=== PATIENT | female | born 1955 | race Caucasian/White ===

== ENCOUNTER 2020-12-31 08:52 | Outpatient (CLI) | payer MEDICARE, SELFPAY ==
--- NOTE | ~2020-12-31 | MM_ITS ---
EXAMINATION: MM screening apoorva BI w kojo HISTORY: Screening TECHNIQUE: Craniocaudal and mediolateral oblique 3-D tomosynthesis images were obtained and synthetic 2-D images were generated. CAD analysis was submitted and interpreted. COMPARISON: 11/21/2016 BREAST PARENCHYMAL COMPOSITION: The breasts are almost entirely fatty. FINDINGS: There is no evidence of suspicious mass, calcification, or architectural distortion to sugg est malignancy in either breast. There has been no suspicious interval change. IMPRESSION: 1. No mammographic evidence of malignancy. 2. Recommend routine screening mammography in one year. BI-RADS Category 1: Negative Reviewed, dictated and finalized at location A.
--- NOTE | ~2020-12-31 | DEXA_ITS ---
Bone Density Report Name: Vanessa Jimenez Age: 65 Sex: Female Ethnicity: White Date of : 1955 Indication: postmenopausal; height loss; hysterectomy; Referring Provider: ANTOINE WINSTON Study: Bone densitometry was performed. Exam Date: December 31, 2020 Accession number: [id number] Bone Density: Region BMD T-score Z-score Classification AP Spine (L1, L2, L3) 1.056 0.3 2.1 Normal Femoral Neck (Left) 0.809 -0.4 1.2 Normal Total Hip (Left) 1.028 0.7 2.0 Normal Total Hip Bilateral Avg 0.988 0.3 1.7 Normal Femoral Neck (Right) 0.826 -0.2 1.4 Normal Total Hip (Right) 0.947 0.0 1.3 Normal World Health Organization criteria for BMD impression classify patients as: Normal (T-score at or above -1.0), Osteopenia (T-score between -1.0 and -2.5), or Osteoporosis (T-score at or below -2.5). 10-year Fracture Risk: FRAX not reported because: All T-scores for Spine Total, Hip Total, Femoral Neck at or above -1.0 Clinical Information Provided by Patient: Has used the following medications: Vitamin D Has the following medical conditions: Hysterectomy Patient maximum height was 69.5 Menopause Age: 54 No regular weight bearing exercise Drinks caffeinated beverages Onset of menses at age 12 Number of children 2 Impression: The patient has normal bone mass. Discussion: BONE DENSITY IS ABOVE THE MINIMUM DESIRABLE LEVEL AT ALL SKELETAL SITES TESTED. This patient?s bone mineral density is above the minimum desirable level (T-score -1.0 or better) at all sites measured. The patient should follow a healthful lifestyle (good nutrition with adequate calcium and vitamin D, and appropriate weight-bearing exercise). Follow-Up: Consider repeating this study in 5 years or sooner if there is some new clinical indication. Reported by: JAM on 12/31/2020 9:25:00 AM. Reviewed, dictated and finalized at location [facility] ESPINOSA
== END 2020-12-31 08:53 | disposition home or self-care (01) ==
PROVIDERS: PCP Family Medicine; Visit Provider Obstetrics & Gynecology
DX: Z12.31 Encounter for screening mammogram for malignant neoplasm of breast (principal); Z78.0 Asymptomatic menopausal state
CPT/HCPCS: 77063; 77067; 77080

== ENCOUNTER → 2021-02-12 08:18 | Outpatient (CLI) | payer MEDICARE, SELFPAY ==
--- NOTE | ~2021-02-12 | MR_ITS ---
EXAMINATION: MR ankle RT wo con DATE: 02/12/2021 09:12 INDICATION: Right Achilles insertional tenderness. TECHNIQUE: Magnetic resonance imaging (MRI) of the right ankle was performed without intravenous cont rast. Sequences included sagittal, coronal, and axial proton-density weighted fast spin echo without and with fat saturation. COMPARISON: None. FINDINGS: Medial ankle ligaments: Deep and superficial deltoid ligaments as well as the spring ligament are normal. Lateral ankle ligaments: The anterior and posterior inferior tibiofibular ligaments are normal. The anterior talofibular, calc aneofibular and posterior talofibular ligaments are normal. Tendons: Moderate distal Achilles tendinosis with mild peritendinitis but without discrete tear. The peroneus longus and brevis tendons are normal. The tibialis anterior and extensor hallucis longus and extensor digitorum longus tendons are normal. The tibialis posterior, flexor digitorum longus and flexor jackman ucis longus tendons are normal. Plantar fascia: Small plantar calcaneal spur at the origin of the normal plantar aponeurosis. Bones/other: Bone alignment is normal. No reactive edema, fracture or pathologic marrow replacing process. No eros ions. Joint spaces are relatively preserved. Fluid: Physiologic amount fluid in the joint spaces. There is a 16 x 8 x 3 mm multilobulated ganglion cyst a rising at the dorsal aspect of the Lisfranc joint at the junction of the articulations of the base of the second metatarsal and medial and mid cuneiforms. IMPRESSION: 1. Moderate insertional Achilles tendinosis with mild peritendinitis but without discrete tear. Reviewed, dictated and finalized at location A. IMPRESSION: 1. Moderate insertional Achilles tendinosis with mild peritendinitis but withou t discrete tear.
== END ==
PROVIDERS: PCP Family Medicine; Visit Provider Podiatrist Foot & Ankle Surgery
DX: M76.61 Achilles tendinitis, right leg (principal)
CPT/HCPCS: 73721

== ENCOUNTER 2021-05-09 11:20 | Outpatient (CLI) | payer MEDICARE, SELFPAY ==
--- NOTE | 2021-05-09 11:30 | ECG_ITS ---
Measurements Intervals [place] Rate: 68 P: 39 MN: 194 QRS: -24 QRSD: 77 T: 8 QT: 382 QTc: 409 Interpretive Statements SINUS RHYTHM EARLY PRECORDIAL R/S TRANSITION VOLTAGE CRITERIA FOR LVH BASELINE ARTIFACT- I, III, AVR, AVL BORDERLINE ECG Electronically Signed On 05-09-2021 14:39:08 CDT by Gavino Gamble D.O.
== END 2021-05-09 11:21 | disposition home or self-care (01) ==
LOC: ANHSURGERY 11:30
PROVIDERS: PCP Family Medicine; Visit Provider Podiatrist Foot & Ankle Surgery
DX: I10 Essential (primary) hypertension (principal); Z01.818 Encounter for other preprocedural examination; R94.31 Abnormal electrocardiogram [ECG] [EKG]
CPT/HCPCS: 93005

== ENCOUNTER 2021-05-13 00:32 | Day surgery (SDC) | payer MEDICARE, SELFPAY ==
[2021-05-04 15:45] VITALS: BMI 29.8
[2021-05-13] VITALS (10 sets, daily range): BP systolic 101–158; BP diastolic 63–94; PULSE 70–87; RESP 10–18; TEMP 36.2–36.6; O2SAT 92–99; BMI 30.4
--- NOTE | ~2021-05-13 | XR_ITS ---
EXAMINATION: XR surgery orthopedic DATE: 05/13/2021 10:12 INDICATION: Achilles calcific tendinosis with insertional tenderness TECHNIQUE: 2 fluoroscopic images of the right calcaneus were obtained during procedure performed by Dorota Christianson. Radiologist was not present for the imaging or procedure. The amount of fluoroscopy time used during this procedure was 0.1 minutes. COMPARISON: None. FINDINGS: Surgical wound with gas in the soft tissues posterior to the posterior tuberosity of the calcaneus. S ubsequent image demonstrates a screw likely for placement of a suture anchor in the region of the norma caneal insertion of the Achilles tendon. No fracture. Visualized joint spaces are normal. IMPRESSION: 1. Fluoroscopy utilized during likely Achilles tendon repair. See procedure note for further detail. Reviewed, dictated and finalized at location A. IMPRESSION: 1. Fluoroscopy utilized during likely Achilles tendon repair. See procedure not e for further detail.
--- NOTE | 2021-05-13 07:18 | WPDHPUPDATE1 ---
History and Physical Update Update Date/Time: 05/13/21 07:18 History and Physical has been reviewed, including an updated exam of the patient. There are NO changes in the patient's condition. Risks, benefits, and alternatives have been discussed and questions answered. Patient agrees to proceed with procedure.
[2021-05-13] MEDS: LACTATED RINGERS 1,000 ML 30 ML IV CONT ×2 (07:50→11:24)
--- NOTE | 2021-05-13 08:13 | P.PNAN_ITS ---
Anes - Initial Pre Proc Eval Procedure: Operation Date: 05/13/21 09:00 Proposed Procedures p Retrocalcaneal Exostectomy With Detachment With Reattachment Of Achilles Tendon Right Foot - Delano Christianson JR, MD Date/Time: 05/13/21 08:13 Surgeon: Delano Christianson JR, MD Pre Op Diagnosis: Achilles Calcific Tendinosis Right Foot Patient Data Age: 65 Gender: F Height: 1.74 m Weight: 92 kg Last Vital Signs Temp 36.2 C L 05/13/21 07:41 Pulse 75 05/13/21 07:41 Resp 16 05/13/21 07:41 BP 158/94 H 05/13/21 07:41 Pulse Ox 97 05/13/21 07:41 Allergies Allergy/AdvReac Type Severity Reaction Status Date / Time No Known Allergies Allergy Verified 05/13/21 07:30 Home Medications Medication Instructions Recorded Confirmed Type cholecalciferol (vitamin D3) 50 1,000 unit PO DAILY tablet 06/24/19 05/13/21 History mcg (2,000 unit) tablet pravastatin 10 mg tablet 10 mg PO QHS #90 tablet 12/20/20 05/13/21 Rx lisinopril 20 mg tablet See Rx Instructions .ROUTE 03/21/21 05/13/21 Rx .COMPLEX #90 tablet metoprolol succinate 100 mg See Rx Instructions .ROUTE 04/14/21 05/13/21 Rx tablet,extended release 24 hr .COMPLEX #30 tablet Patient hx anesthesia problems: none Family hx anesthesia problems: none Results Review: All pre-operative results and documents have been reviewed as part of the pre-operative evaluation. [facility] Past Medical History Medical History Cystocele, midline Essential (primary) hypertension Hepatitis C antibody test negative (~08/30/17) History of vaginal delivery x 2 Mixed hyperlipidemia Overweight Prediabetes Surgical History Surgical History History of bladder surgery History of hysterectomy (~11/27/16) Hx of cholecystectomy (~1999) Family History Family History Mother Hypertension Other Diabetes mellitus Social History Social History Smoking status: Never smoker Alcohol intake: current Drinks per week: 7 Living arrangements: with family Spiritual care concerns: No Anes - Eval Final PreProcedure Day of Procedure 05/13/21 08:13 Patient weight: obese Heart: regular rate and rhythm Lungs: clear to auscultation Airway: Mallampati scale class II and other (caps and implants) Neurological: alert and oriented Last oral intake: >/= 8 hours ASA classification: II Emergent: no Anesthetic plan: proceed Anesthesia type and monitoring: general ETT (glidescope planned) and standard monitoring Results Review: All pre-operative results and documents have been reviewed as part of the pre-operative evaluation. Informed Consent: The patient's anesthetic plan and its attendant risks and benefits were discussed with the patient/family/POA. Questions were solicited and answers provided to the satisfaction of the patient/family/POA.
[2021-05-13] MEDS: LIDOCAINE HCL 2% PF INJ 5 ML VIAL 15 ML INFILTRATE (09:03)
[2021-05-13] MEDS: BUPIVACAINE HCL 0.5% PF 30 ML VIAL INFILTRATE (09:03)
[2021-05-13] MEDS: ceFAZolin 2 GM/D5W 50 ML 2 GM/50 ML BAG IVPB (09:03)
--- NOTE | 2021-05-13 10:50 | W.PM.PROC2 ---
Procedure Note - Detailed Date of Procedure 05/13/21 Pre-op Diagnosis Achilles Calcific Tendinosis Right Foot Post-op Diagnosis same Procedure Performed Retrocalcaneal exostectomy with detachment and reattachment of the Achilles tendon Surgeon Delano Christianson JR, DPM Anesthesia general and local Indications [place] to retrocalcaneal insertional Achilles tendon right foot Description of Procedure Under mild sedation, the patient was brought to the operating room, placed on the operating table in the prone position. A pneumatic thigh tourniquet was placed about the patient's right thigh . Following general anesthesia I performed a local anesthetic nerve block with 30 cc's of 2% Lidocaine plain and 0.5% Marcaine plain along the distal leg. The right foot and distal leg was then scrubbed, prepped, and draped in the usual aseptic manner. An Esmarch bandage was then used to examine the patient's right foot and pneumatic thigh tourniquet was then inflated. Surgery began in the following manner. Attention was directed to the posterior aspect of right leg where a curvilinear J shaped incision was made lateral to the retrocalcaneal exostosis which was palpable. The incision was made starting 6cm above the insertion of the Achilles and extending 3cm inferior and medial to the calcaneus. The incision was continued deep down through the subcutaneous tissues using sharp and blunt dissection. All bleeders were cauterized as necessary. At this point dissection was continued exposing the the insertional component of the Achilles Tendon. There was noted hypertrophy to the distal tendon. A midsubstance linear Achilles tendon incision was made exposing a large intrasubstance calcified region of bone which was carefully excised. There was a large posterior and superior exostosis noted which was resected with an osteotome and mallet and smoothed out with a hanley rasp. All rough edges were smoothed with a power leon and bone rasp. The area was flushed with copious amounts of sterile saline. Fluoroscopy was used to make sure that enough of the retrocalcaneal region was resected approximately 3m from superior to inferior and medial to lateral and 2cm from posterior to anterior. Next, utilizing standard principle and techniques the [employer] SpeedBridge system was used to reattach the debulked Achilles tendon to the posterior calcaneus. Comparable tension to the contralateral foot was maintained. Adequate stable reattachment was noted. I flushed the wound site with copious amounts of sterile saline. Next, the paratenon and overlying subcutaneous tissue was reapproximated with 3-0 Vicryl and 4-0 Vicryl correspondingly. Next, the skin was reapproximated and coapted with 5-0 Monocryl in running subcuticular suture fashion technique. Upon completion of the procedure, the incision was dressed with Adaptic, 4 x 4's, Kerlix, and Kvng Wrap. The pneumatic thigh tourniquet was then deflated and a prompt hyperemic response noted to all digits of the right foot. A posterior splint was then applied. The patient did very well with the procedure and the anesthesia. He was transferred to the recovery room with vital signs stable and vascular status intact to all toes of the right foot. Following a period of postoperative monitoring, the patient will be discharged home on the following written and oral postoperative instructions: 1. Keep the dressing clean, dry, and intact. Use a cast protector bag with showers. 2. The patient to be strictly nonweightbearing with a knee scooter. 3. The patient should ice and elevate the right foot when at rest. 4. The patient to contact Dr. Christianson for all postop care and if any problems arise. 5. Prescriptions were written for Percocet 5/325 dispensed 40 to be taken 1 p.o. q.4 to 6 hours as needed for severe pain. Implants [employer] Speedbridge system Estimated Blood Loss 10 Drains No Packing No Pathology none sent Complications No immed
== END 2021-05-13 13:00 | disposition home or self-care (01) ==
PROVIDERS: PCP Family Medicine; Visit Provider Podiatrist Foot & Ankle Surgery
PROC: (CPT 27650; principal; 2021-05-13 09:00)
DX: M77.31 Calcaneal spur, right foot (principal); M76.61 Achilles tendinitis, right leg; M65.871 Other synovitis and tenosynovitis, right ankle and foot; I10 Essential (primary) hypertension; R73.03 Prediabetes; E78.2 Mixed hyperlipidemia; Z86.19 Personal history of other infectious and parasitic diseases; E66.9 Obesity, unspecified; Z68.30 Body mass index [BMI] 30.0-30.9, adult
CPT/HCPCS: 28118; C1713; J0330; J0690; J1170; J2250; J2405; J2704; J2710; J3010; J7120

== ENCOUNTER → 2021-08-08 13:35 | Outpatient (CLI) | payer MEDICARE, SELFPAY ==
--- NOTE | ~2021-08-08 | XR_ITS ---
EXAMINATION: XR abdomen/kub 1V INDICATION: Flank pain TECHNIQUE: Supine views of the abdomen were obtained on 2 radiographs. COMPARISON: None FINDINGS: The bowel gas pattern is normal. No urolithiasis is identified. There are phleboliths of th e pelvis. The visualized lung bases are clear. There is mild osteoarthritis of the hips. Severe lumba r spondylosis is noted. IMPRESSION: 1. No radiographic correlate for the patient's symptoms. Reviewed, dictated and finalized at location F. F RESEARCH SCIENTIST
--- NOTE | ~2021-08-08 | CT_ITS ---
EXAMINATION: CT abdomen pelvis wo con DATE: 08/08/2021 13:57 INDICATION: Flank pain TECHNIQUE: Computed tomography (CT) of the abdomen and pelvis was performed without intravenous contr ast. The dose-length product (DLP) was 990.68 mGy-cm. Automated exposure control and iterative recons truction technique were employed. COMPARISON: 12/01/2018 FINDINGS: Stable nodules of the visualized lung bases are consistent with old granulomatous disease. The gallbladder is surgically absent. The liver, spleen, pancreas, and adrenal glands are normal. The kidneys are unremarkable. No stones are identified in the kidneys, ureters, or bladder. There is no hydronephrosis or hydroureter. No pathologically enlarged abdominal or pelvic lymph nodes are identif ied. There is no free intraperitoneal gas or evidence of bowel obstruction. Colonic diverticulosis is present without evidence of diverticulitis. The appendix is normal. There is severe lumbar spondylos is. IMPRESSION: 1. No CT correlate for the patient's symptoms. Reviewed, dictated and finalized at location F. ALS EXAMINER
== END ==
PROVIDERS: PCP Family Medicine; Visit Provider Nurse Practitioner Adult Health
DX: R10.9 Unspecified abdominal pain (principal)
CPT/HCPCS: 74018; 74176

== ENCOUNTER 2023-11-29 07:23 | Day surgery (SDC) | payer MEDICARE, SELFPAY ==
[2023-11-12 13:58] VITALS: BMI 31.5
[2023-11-14 14:14] VITALS: BMI 29.6
[2023-11-29 08:28] VITALS: BP 134/99; PULSE 77; RESP 16; TEMP 37.2; O2SAT 98; BMI 31.0
[2023-11-29] MEDS: LACTATED RINGERS 1,000 ML 150 ML IV CONT (08:32)
--- NOTE | 2023-11-29 08:37 | WPDANESEPPF ---
Anes - Initial Pre Proc Eval Procedure: Operation Date: 11/29/23 09:30 Proposed Procedures p Screening Colonoscopy - Goldy Lares MD Date/Time: 11/29/23 08:37 Surgeon: Goldy Lares MD Pre Op Diagnosis: Screening neoplasm of colon Patient Data Age: 67 Gender: F Height: 1.75 m Weight: 95.3 kg Last Vital Signs Temp 37.2 C 11/29/23 08:28 Pulse 77 11/29/23 08:28 Resp 16 11/29/23 08:28 BP 134/99 H 11/29/23 08:28 Pulse Ox 98 11/29/23 08:28 O2 Del Method Room Air 11/29/23 08:28 Allergies Allergy/AdvReac Type Severity Reaction Status Date / Time No Known Allergies Allergy Verified 11/29/23 08:26 Home Medications Medication Instructions Recorded Confirmed Type cholecalciferol (vitamin D3) 50 1,000 unit PO DAILY 06/24/19 11/29/23 History mcg (2,000 unit) tablet Saccharomyces boulardii 250 mg 250 mg PO DAILY 09/04/22 11/29/23 History capsule (Daily Probiotic (S. boulardii)) coenzyme Q10 75 mg capsule (Ultra 75 mg PO DAILY 09/04/22 11/29/23 History CoQ10) lisinopril 20 mg tablet 20 mg PO DAILY 11/14/23 11/29/23 History metoprolol succinate 100 mg 100 mg PO DAILY 11/14/23 11/29/23 History tablet,extended release 24 hr pravastatin 20 mg tablet 20 mg PO DAILY 11/14/23 11/29/23 History Patient hx anesthesia problems: none Family hx anesthesia problems: none Results Review: All pre-operative results and documents have been reviewed as part of the pre-operative evaluation. [facility] Past Medical History Medical History Cystocele, midline Essential (primary) hypertension Hepatitis C antibody test negative (~08/30/17) History of vaginal delivery x 2 Mixed hyperlipidemia Overweight Prediabetes Surgical History Surgical History History of bladder surgery History of hysterectomy (~11/27/16) Hx of cholecystectomy (~1999) Family History Family History Mother Hypertension Other Diabetes mellitus Social History Social History Smoking status: Never smoker Alcohol intake: current Drinks per week: 7 Substance use: never Substance use type: does not use Lack of Transportation: No Lack of Food: Never True Current Housing: I Have Housing Concerned About Future Housing: No Difficulty Paying Gas/Electric Bills: No Difficulty Paying for Meds: No Currently Unemployed: No Education: High School Diploma/GED Difficulty w/ Childcare or Family Care: No Living arrangements: with family Gender identity (if verbalized by the patient): Female Sexual Orientation (if Verbalized by the Patient): Straight or Heterosexual Spiritual care concerns: No Anes - Eval Final PreProcedure Day of Procedure 11/29/23 08:37 Patient weight: obese Heart: regular rate and rhythm Lungs: clear to auscultation Airway: Mallampati scale class II Neurological: alert and oriented Last oral intake: >/= 8 hours ASA classification: III Emergent: no Anesthetic plan: proceed Anesthesia type and monitoring: general GIVS and standard monitoring Results Review: All pre-operative results and documents have been reviewed as part of the pre-operative evaluation. Informed Consent: The patient's anesthetic plan and its attendant risks and benefits were discussed with the patient/family/POA. Questions were solicited and answers provided to the satisfaction of the patient/family/POA.
--- NOTE | 2023-11-29 09:05 | PM.HPGS ---
History of Present Illness History of Present Illness Consent: Risks, benefits, and alternatives have been discussed and questions answered. Patient agrees to proceed with procedure. Chief complaint: Screening neoplasm of colon Narrative: Vanessa Jimenez is a 67 year old female referred for colonoscopy. Patient reports that her weight appetite and bowel movements are normal. She does notice some bright red blood per rectum with wiping. Patient denies abdominal pain. Her bowel habits have been fairly regular. Family history is noncontributory. Review of Systems Review of Systems: All systems reviewed & are unremarkable except as noted in HPI and below PMFSH Past Medical History Medical History (Updated 11/29/23 @ 09:07 by Goldy Lares MD) Cystocele, midline Essential (primary) hypertension Hepatitis C antibody test negative (~08/30/17) History of vaginal delivery x 2 Mixed hyperlipidemia Overweight Prediabetes Surgical History Surgical History History of bladder surgery History of hysterectomy (~11/27/16) Hx of cholecystectomy (~1999) Family History Family History Mother Hypertension Other Diabetes mellitus Social History Social History Smoking status: Never smoker Alcohol intake: current Drinks per week: 7 Substance use: never Substance use type: does not use Lack of Transportation: No Lack of Food: Never True Current Housing: I Have Housing Concerned About Future Housing: No Difficulty Paying Gas/Electric Bills: No Difficulty Paying for Meds: No Currently Unemployed: No Education: High School Diploma/GED Difficulty w/ Childcare or Family Care: No Living arrangements: with family Gender identity (if verbalized by the patient): Female Sexual Orientation (if Verbalized by the Patient): Straight or Heterosexual Spiritual care concerns: No Meds Home Medications and Allergies Home Medications Medication Instructions Recorded Confirmed Type cholecalciferol (vitamin D3) 50 1,000 unit PO DAILY 06/24/19 11/29/23 History mcg (2,000 unit) tablet Saccharomyces boulardii 250 mg 250 mg PO DAILY 09/04/22 11/29/23 History capsule (Daily Probiotic (S. boulardii)) coenzyme Q10 75 mg capsule (Ultra 75 mg PO DAILY 09/04/22 11/29/23 History CoQ10) lisinopril 20 mg tablet 20 mg PO DAILY 11/14/23 11/29/23 History metoprolol succinate 100 mg 100 mg PO DAILY 11/14/23 11/29/23 History tablet,extended release 24 hr pravastatin 20 mg tablet 20 mg PO DAILY 11/14/23 11/29/23 History Allergies Allergy/AdvReac Type Severity Reaction Status Date / Time No Known Allergies Allergy Verified 11/29/23 08:26 Vital Signs Vital Signs - 24 hr 11/29/23 08:28 Temperature 98.9 F Pulse Rate 77 Respiratory Rate 16 Blood Pressure 134/99 H Pulse Oximetry 98 Oxygen Delivery Room Air Exam Narrative: Physical exam reveals patient to be alert. Vital signs stable. HEENT exam is unremarkable. Patient is anicteric. Lungs are clear to auscultation and percussion. Heart is without murmur or extra sounds. Abdomen bowel sounds are present soft nontender with no organomegaly. Digital external rectal exam is normal. Assessment and Plan Assessment and plan (1) Encounter for screening colonoscopy: Code(s): Z12.11 - Encounter for screening for malignant neoplasm of colon Status: Acute Assessment and Plan: Patient referred today for screening colonoscopy. Further recommendations may be given after endoscopy. (2) BRBPR (bright red blood per rectum): Code(s): K62.5 - Hemorrhage of anus and rectum Status: Acute Assessment and Plan: Patient has noted some blood in her stools and attributes this to hemorrhoids. High-fiber diet advised. Further recommendations may
[2023-11-29 09:32] VITALS: BP 122/67; PULSE 73; RESP 12; O2SAT 97
[2023-11-29 09:42] VITALS: BP 129/84; PULSE 69; RESP 14; O2SAT 99
[2023-11-29 09:52] VITALS: BP 115/90; PULSE 66; RESP 16; O2SAT 99
--- NOTE | 2023-11-29 10:20 | WPDANESPN ---
Anes - Prog Note Post-Op Date/Time: 11/29/23 10:20 Cardiovascular status: normal Respiratory status: normal Airway patency: baseline Mental status: baseline Post-Op hydration status: normal Vital Signs: Last Vital Signs Temp 37.2 C 11/29/23 08:28 Pulse 66 11/29/23 09:52 Resp 16 11/29/23 09:52 BP 115/90 11/29/23 09:52 Pulse Ox 99 11/29/23 09:52 O2 Del Method Room Air 11/29/23 09:52 Pain Score (VAS): 0/10 I/O: Intake & Output 11/28/23 11/29/23 11/29/23 23:59 07:59 15:59 Intake Total 200 Balance 200 Patient Feedback: Patient satisfied with anesthetic care.
== END 2023-11-29 10:01 | disposition home or self-care (01) ==
PROVIDERS: PCP Hospitalist; Visit Provider Internal Medicine Gastroenterology
PROC: 0DJD8ZZ Inspection of Lower Intestinal Tract, Via Natural or Artificial Opening Endoscopic (ICD-10-PCS; CPT 45378; principal; 2023-11-29 09:30)
DX: Z12.11 Encounter for screening for malignant neoplasm of colon (principal); K62.5 Hemorrhage of anus and rectum; K57.30 Diverticulosis of large intestine without perforation or abscess without bleeding; K64.8 Other hemorrhoids
CPT/HCPCS: G0121

== ENCOUNTER 2024-04-18 08:20 | Outpatient (CLI) | payer MEDICARE, SELFPAY ==
--- NOTE | 2024-04-18 08:36 | ECG_ITS ---
Test Date: 2024-04-18 08:47:29 Measurements Intervals [place] Rate: 77 P: 37 FL: 175 QRS: -28 QRSD: 102 T: 8 QT: 412 QTc: 468 Interpretive Statements SINUS RHYTHM INCOMPLETE RIGHT BUNDLE BRANCH BLOCK LOW QRS VOLTAGE IN PRECORDIAL LEADS VOLTAGE CRITERIA FOR LVH BORDERLINE T WAVE ABNORMALITY- ANT/INF LEADS BASELINE ARTIFACT- I, II, III, AVR, AVL, AVF BORDERLINE ECG No previous ECG available for comparison Electronically Signed On 04-18-2024 10:48:56 CDT by Gavino Gamble D.O.
== END 2024-04-18 08:21 | disposition home or self-care (01) ==
PROVIDERS: PCP Hospitalist; Visit Provider Surgery
DX: I10 Essential (primary) hypertension (principal); Z01.818 Encounter for other preprocedural examination
CPT/HCPCS: 93005

== ENCOUNTER 2024-04-23 02:24 | Day surgery (SDC) | payer MEDICARE, SELFPAY ==
[2024-04-16 11:29] VITALS: BMI 29.5
--- NOTE | 2024-04-16 11:30 | PC.NURSE ---
Report to the Outpatient Waiting Room, entrance under the green pavilion located off [facility], at time _0600_ on date _[id number]_. Planned Procedure Time: _0730_.? Time changes happen often and if your time is changed the preop area will call you the afternoon before. - You and your visitor will be asked to self-screen and do not enter if you have any COVID symptoms. Please call surgeon if you need to reschedule. - A mask is optional within the hospital at this time. Clear liquid diet day before surgery. Patients may have clear liquids (water, carbonated beverages, clear teas, apple juice) until 3 hours prior to surgery with a maximum of 20 ounces. No smoking Take Dulcolax 5mg 2 tabs Sunday night and 2 tabs Sunday night. Use Fleets enema night before surgery and morning of surgery. Take only the following medications with a SIP of water on the morning of surgery: ____Metoprolol DO NOT STOP ANY OF YOUR OTHER PRESCRIPTION MEDICATIONS PRIOR TO SURGERY EXCEPT THE FOLLOWING Medications to discontinue per physician ____Vit D3, Coq10, and probiotic Date to take last [id number] Please no make-up, nail tamazight, hairspray, perfume, deodorant, or body powder the day of surgery.? No jewelry (including any body piercings) or valuables the day of surgery, leave them at home.? Please take a shower or bath the night before, or the morning of, surgery with an antibacterial soap.? Wear comfortable, loose fitting clothing.? - Jewelry must be removed prior to entering the operating room.? Rings and piercings that are not removed may be cut off. - The hospital will not accept responsibility for valuables.? - Please leave all valuables, including medications, at home the day of surgery. If you are going home after surgery, a licensed transfer driver must drive you home.? - NO public transportation without another adult if you receive anesthesia. - We recommend that an adult stay with you for 24 hours following discharge. - We also recommend that you do not drive, make important decision, drink alcoholic beverages, or take any drugs that were not prescribed by your health care provider for at least 24 hours after your discharge time. Follow any additional instructions given to you from your surgeon. Telephone instructions given to __Nobleet__and asked if any additional questions and then verbalized understanding. Patient advised to call surgeon office or pre surgery nurse liaison [phone] if any additional questions.
--- NOTE | 2024-04-22 11:12 | PM.SD2 ---
Same Day Admit/Disch: HPI History of Present Illness Chief complaint: prolapse bleeding internal/external hemorrhoids Narrative: Vanessa Jimenez is a 68 year old female who has had problems with small amounts of blood after bowel movement for years. She had a colonoscopy in November which was essentially negative other than large internal hemorrhoids. She was seen in the office in January and found to have a stage IV chronically prolapsed right posterior complex internal hemorrhoid with an external hemorrhoid. No other prolapsed hemorrhoids were noted. After discussion, she is taken to surgery at this time for excision of the chronic prolapsed hemorrhoids. [facility] Past Medical History Medical History Cystocele, midline Essential (primary) hypertension Hepatitis C antibody test negative (~08/30/17) History of vaginal delivery x 2 Mixed hyperlipidemia Overweight Prediabetes Surgical History Surgical History History of bladder surgery History of hysterectomy (~11/27/16) Hx of cholecystectomy (~1999) Family History Family History Mother Hypertension Other Diabetes mellitus Social History Social History Smoking status: Never smoker Alcohol intake: current Drinks per week: 7 Substance use: never Substance use type: does not use Lack of Transportation: No Lack of Food: Never True Current Housing: I Have Housing Concerned About Future Housing: No Difficulty Paying Gas/Electric Bills: No Difficulty Paying for Meds: No Currently Unemployed: No Education: High School Diploma/GED Difficulty w/ Childcare or Family Care: No Living arrangements: with family Gender identity (if verbalized by the patient): Female Sexual Orientation (if Verbalized by the Patient): Straight or Heterosexual Spiritual care concerns: No Same Day Admit/Disch: Med Pre-admit Medications Home Medications Medication Instructions Recorded Confirmed Type cholecalciferol (vitamin D3) 50 1,000 unit PO DAILY 06/24/19 04/16/24 History mcg (2,000 unit) tablet Saccharomyces boulardii 250 mg 250 mg PO DAILY 09/04/22 04/16/24 History capsule (Daily Probiotic (S. boulardii)) coenzyme Q10 75 mg capsule (Ultra 75 mg PO DAILY 09/04/22 04/16/24 History CoQ10) lisinopril 20 mg tablet 20 mg PO DAILY 11/14/23 04/16/24 History metoprolol succinate 100 mg 100 mg PO DAILY 11/14/23 04/23/24 History tablet,extended release 24 hr pravastatin 20 mg tablet 20 mg PO DAILY 11/14/23 04/16/24 History ibuprofen 600 mg tablet 600 mg PO Q6H PRN pain #14 tabs 04/23/24 Rx oxycodone-acetaminophen 5 mg-325 0.5 - 1 tablet PO Q6H PRN pain #10 04/23/24 Rx mg tablet tabs Review of Systems Review of Systems All systems reviewed & are unremarkable except as noted in HPI and below (HPI) Exam Const: General: comfortable, no acute distress, alert and awake HENMT: Head: normocephalic and atraumatic Mouth: Yes Normal oral and palatal mucosa present Eyes: Conjunctivae: conjunctivae normal Pupils: Equal, round and reactive pupils present EOM: EOMs intact bilaterally Neck: Neck: normal visual inspection, no lymphadenopathy and nontender Resp: Effort & Inspection: normal respiratory effort Auscultation: clear to auscultation bilaterally Cardio: Rate: regular rate Rhythm: regular rhythm Heart sounds: no gallops, no murmurs and no rubs GI: Inspection: non-distended GI Palp: Yes Soft to palpation, No Tenderness to palpation present (GI), No Hepatomegaly present and No Splenomegaly present Rectal Exam: normal sphincter tone, External hemorrhoid(s) present, Internal hemorrhoid(s) present, No mass and visual inspection abnormal hemorrhoids (Chronic internal hemorrhoid prolapse right posterior) Skin
[2024-04-23] VITALS (8 sets, daily range): BP systolic 125–145; BP diastolic 78–104; PULSE 65–86; RESP 12–18; TEMP 36.3; O2SAT 97–100; BMI 31.6
--- NOTE | 2024-04-23 07:33 | WPDANESEPPF ---
Anes - Initial Pre Proc Eval Procedure: Operation Date: 04/23/24 08:30 Proposed Procedures p Excision Single Column Internal and External Hemorrhoids - Jose Ramirez MD Date/Time: 04/23/24 07:33 Surgeon: Jose Ramirez MD Pre Op Diagnosis: prolapse bleeding internal/external hemorrhoids Patient Data Age: 68 Gender: F Height: 1.75 m Weight: 97 kg Last Vital Signs Temp 97.3 F L 04/23/24 07:21 Pulse 86 04/23/24 07:21 Resp 18 04/23/24 07:21 BP 134/96 H 04/23/24 07:21 Pulse Ox 98 04/23/24 07:21 O2 Del Method Room Air 04/23/24 07:21 Allergies Allergy/AdvReac Type Severity Reaction Status Date / Time No Known Allergies Allergy Verified 04/23/24 07:19 Home Medications Medication Instructions Recorded Confirmed Type cholecalciferol (vitamin D3) 50 1,000 unit PO DAILY 06/24/19 04/16/24 History mcg (2,000 unit) tablet Saccharomyces boulardii 250 mg 250 mg PO DAILY 09/04/22 04/16/24 History capsule (Daily Probiotic (S. boulardii)) coenzyme Q10 75 mg capsule (Ultra 75 mg PO DAILY 09/04/22 04/16/24 History CoQ10) lisinopril 20 mg tablet 20 mg PO DAILY 11/14/23 04/16/24 History metoprolol succinate 100 mg 100 mg PO DAILY 11/14/23 04/23/24 History tablet,extended release 24 hr pravastatin 20 mg tablet 20 mg PO DAILY 11/14/23 04/16/24 History Patient hx anesthesia problems: none Family hx anesthesia problems: none Results Review: All pre-operative results and documents have been reviewed as part of the pre-operative evaluation. [facility] Past Medical History Medical History Cystocele, midline Essential (primary) hypertension Hepatitis C antibody test negative (~08/30/17) History of vaginal delivery x 2 Mixed hyperlipidemia Overweight Prediabetes Surgical History Surgical History History of bladder surgery History of hysterectomy (~11/27/16) Hx of cholecystectomy (~1999) Family History Family History Mother Hypertension Other Diabetes mellitus Social History Social History Smoking status: Never smoker Alcohol intake: current Drinks per week: 7 Substance use: never Substance use type: does not use Lack of Transportation: No Lack of Food: Never True Current Housing: I Have Housing Concerned About Future Housing: No Difficulty Paying Gas/Electric Bills: No Difficulty Paying for Meds: No Currently Unemployed: No Education: High School Diploma/GED Difficulty w/ Childcare or Family Care: No Living arrangements: with family Gender identity (if verbalized by the patient): Female Sexual Orientation (if Verbalized by the Patient): Straight or Heterosexual Spiritual care concerns: No Anes - Eval Final PreProcedure Day of Procedure 04/23/24 07:33 Patient weight: normal Heart: regular rate and rhythm Lungs: clear to auscultation Airway: Mallampati scale class II Neurological: alert and oriented Last oral intake: >/= 8 hours ASA classification: II Emergent: no Anesthetic plan: proceed Anesthesia type and monitoring: general ETT Results Review: All pre-operative results and documents have been reviewed as part of the pre-operative evaluation. HTN, hyperlipidemia. Pt active w walking, recently several miles while in [facility], no cp or sob. Informed Consent: The patient's anesthetic plan and its attendant risks and benefits were discussed with the patient/family/POA. Questions were solicited and answers provided to the satisfaction of the patient/family/POA.
[2024-04-23] MEDS: ACETAMINOPHEN 500 MG TABLET 1000 MG PO (07:34)
[2024-04-23] MEDS: KETOROLAC 15 MG/ML VIAL (*BKC) IV PUSH (07:34)
[2024-04-23] MEDS: LACTATED RINGERS 1,000 ML 30 ML IV CONT (07:34)
--- NOTE | 2024-04-23 08:07 | WPDHPUPDATE1 ---
History and Physical Update Update Date/Time: 04/23/24 08:07 History and Physical has been reviewed, including an updated exam of the patient. There are NO changes in the patient's condition. Risks, benefits, and alternatives have been discussed and questions answered. Patient agrees to proceed with procedure.
[2024-04-23] MEDS: BUPIVACAINE/EPINEPHRINE 0.5% 10 ML VIAL 40 ML INFILTRATE (09:02)
[2024-04-23] MEDS: ceFAZolin 2 GM/D5W 50 ML 2 GM/50 ML BAG IVPB (09:02)
--- NOTE | 2024-04-23 09:44 | P.OP_ITS ---
Procedure Note - Detailed Date of Procedure 04/23/24 Pre-op Diagnosis prolapse bleeding internal/external hemorrhoids Post-op Diagnosis Same Procedure Performed Excision right posterior single complex internal and external hemorrhoids Surgeon Jose Ramirez MD Railroad Signal And Switch Operator Pushpa Castaneda [facility] Anesthesia General and Local Indications Patient has had rectal bleeding and exam showed prolapse stage for internal and external hemorrhoids. She is taken to surgery now for hemorrhoidectomy Findings Only the single complex internal and external hemorrhoids in the right posterior location were pathologic. No other internal hemorrhoids or anorectal pathology was noted. Description of Procedure Patient was taken to surgery and induced into general anesthesia. She was placed in prone gianna-knife position. The buttocks were taped apart. Prep and drape was carried out. A small Hill-French anoscope was 1st introduced and the anal canal and distal rectum were surveyed. No abnormalities of significance other than the stage IV right posterior internal and external hemorrhoids were noted. Local anesthetic was then used placing 20 cc of deep subdermal as well as 20 cc of interest sphincteric 0.5% bupivacaine with epinephrine was placed. I then exposed the hemorrhoid complex with medium Hill- French anoscope. The complex was then excised with the cautery. Bleeding was minimal. The wound was closed with running locking 3-0 chromic suture. The wound was hemostatic. We then dressed the rectum with Xeroform gauze fluffs and Medipore tape. Patient was then returned to a supine position, awakened and taken to recovery in good condition. Sponge needle counts were correct x2. Estimated Blood Loss -3 Drains No Packing No Pathology Yes (Right posterior complex internal and external hemorrhoids) Complications None Condition Stable Disposition PACU [facility] Billing Surgery - Charge Forward: Surgery Billing (Excision single complex internal and external hemorrhoids)
== END 2024-04-23 11:51 | disposition home or self-care (01) ==
PROVIDERS: PCP Hospitalist; Visit Provider Surgery
PROC: (CPT 46255; principal; 2024-04-23 08:30)
DX: K64.3 Fourth degree hemorrhoids (principal); I10 Essential (primary) hypertension; E78.2 Mixed hyperlipidemia; R73.03 Prediabetes
CPT/HCPCS: 46255; 88304; A9270; J0690; J1885; J2405; J2704; J3010; J7120

== ENCOUNTER 2025-04-27 12:48 | Outpatient (CLI) | payer MEDICARE, SELFPAY ==
--- NOTE | ~2025-04-27 | DEXA_ITS ---
Bone Density Report Name: NICK LAST Age: 69 Sex: Female Ethnicity: White Date of : 1955 Indication: postmenopausal; screening for osteoporosis; Referring Provider: ANTOINE WINSTON Study: Bone densitometry was performed. Exam Date: April 27, 2025 Accession number: [id number] Bone Density: Region BMD T-score Z-score Classification AP Spine(L1-L4) 1.133 0.8 2.9 Normal Femoral Neck (Left) 0.803 -0.4 1.4 Normal Total Hip (Left) 0.992 0.4 1.9 Normal Femoral Neck (Right) 0.834 -0.1 1.7 Normal Total Hip (Right) 0.975 0.3 1.8 Normal Total Hip Mean 0.984 0.4 1.9 Normal World Health Organization criteria for BMD impression classify patients as: Normal (T-score at or above -1.0), Osteopenia (T-score between -1.0 and -2.5), or Osteoporosis (T-score at or below -2.5). 10-year Fracture Risk: FRAX not reported because: All T-scores for Spine Total, Hip Total, Femoral Neck at or above -1.0 Previous Exams: Region Exam Age BMD T-score BMD Change BMD Change Date g/cm2 vs Baseline vs Previous Total Hip(Left) 04/27/2025 69 0.992 0.4 -0.036 (-3.5%) -0.036 (-3.5%) 12/31/2020 65 1.028 0.7 Total Hip(Right) 04/27/2025 69 0.975 0.3 0.028 (3.0%)* 0.028 (3.0%)* 12/31/2020 65 0.947 0.0 *Denotes significance at 95% confidence level, LSC for Total Hip = 0.027 g/cm2 Clinical Information Provided by Patient: Patient maximum height was 69.0 Menopause Age: 54 No regular weight bearing exercise Does not regularly consume dairy products Drinks caffeinated beverages Onset of menses at age 13 Number of children 2 Impression: The patient has normal bone mass. The BMD for the Total Hip(Left) decreased, changing by -3.5% since the last DXA exam. Discussion: BONE DENSITY IS ABOVE THE MINIMUM DESIRABLE LEVEL AT ALL SKELETAL SITES TESTED. This patient?s bone mineral density is above the minimum desirable level (T-score -1.0 or better) at all sites measured. The patient should follow a healthful lifestyle (good nutrition with adequate calcium and vitamin D, and appropriate weight-bearing exercise). Follow-Up: Consider repeating this study in 3 to 4 years to reassess this patient's status, or sooner if there is some new clinical indication. Reported by: JAM on 04/27/2025 1:26:00 PM. Reviewed, dictated and finalized at location A.
--- OUTSIDE RECORDS SUMMARY | 2025-04-27 12:54 | XMS_ITS | Clinical Summary ---
Author Organization [facility] Address [address] [facility] [address] [place] [id number] Phone Care Team Providers Care Contract Serviceman Name Role Phone Kathy Molina MD Primary Care Pro vider Allergies No known active allergies Medications coenzyme Q10 100 mg capsule Take 1 capsule (100 mg total) by mouth daily Active psyllium, aspartame, SF (METAMUCIL SF) 3.4 gram packet Take 1 packet by mouth daily Active turmeric, bulk, 95 % powder Active simvastatin (ZOCOR) 20 mg tabletIndications :Dyslipidemia Take 1 tablet (20 mg total) by mouth nightly 90 tablet 1 5 11/12/19 26 Active lisinopriL (PRINIVIL,ZESTRIL ) 20 mg tabletIndications :Primary hypertension Take 1 tablet (20 mg total) by mouth daily 90 tablet 1 5 Active metoprolol XL (TOPROL-XL) 100 mg 24 hr tabletIndications :Primary hypertension Take 1 tablet (100 mg total) by mouth daily 90 tablet 1 5 11/12/19 26 Active Active Problems Problem Noted Date Diagnosed Date Encounter for annual wellnes s visit (AWV) in Medicare patient 03/20/2022 Assessment & Plan (05/13/2024 1:32 PM CDT): Reviewed PMH & PHQ Screening PHQ-2 Total Score (If total score is 3 or more points, staff should administer the PHQ-9): 0 Hearing/vision screening reviewed, referrals placed as needed Fall risk reviewed Reviewed medications and supplements Specialists: community engagement coordinator, optho, dentist no evidence of cognitive impairment HCM: orders placed as needed Assessment & Plan (04/06/2023 9:08 AM CDT): Reviewed PMH & PHQ Screening PHQ-2 Total Score (If total score is 3 or more points, staff should administer the PHQ-9): 0 Hearing/vision screening reviewed, referrals placed as needed Fall risk reviewed Reviewed medications and supplements Specialists: none no evidence of cognitive impairment HCM: orders placed as needed Assessment & Plan (03/20/2022 1:11 PM CDT): Reviewed PMH & PHQ Screening PHQ-2 Total Score (If total score is 3 or more points, staff should administer the PHQ-9): 0 Hearing/vision screening reviewed, referrals placed as needed Fall risk reviewed Reviewed medications and supplements Specialists: none no evidence of cognitive impairment HCM: orders placed as needed Hypertension 07/30/2017 Assessment & Plan (11/11/2024 11:16 AM CDT): controlled Continue 20mg lisinopril & metoprolol 100mg Assessment & Plan (05/13/2024 1:05 PM CDT): controlled Continue 20mg lisinopril & metoprolol 100mg Assessment & Plan (11/05/2023 2:04 PM CDT): stable Continue 20mg lisinopril & metoprolol 100mg Assessment & Plan (04/06/2023 9:06 AM CDT): stable Continue 20mg lisinopril & metoprolol 100mg Assessment & Plan (09/29/2022 3:20 PM CONTACT AND SERVICE CLERKS SUPERVISOR): BP at goal Continue 20mg lisinopril & metoprolol 100mg Assessment & Plan (03/20/2022 1:09 PM CDT): BP at goal Continue 20mg lisinopril & metoprolol 100mg Assessment & Plan (09/19/2021 2:25 PM CONTACT AND SERVICE CLERKS SUPERVISOR): BP at goal Continue 20mg lisinopril & metoprolol 100mg Dyslipidemia Assessment & Plan (11/11/2024 11:37 AM CDT): Lab Results Component Value Date LDLCALC 129 11/04/2024 uncontrolled Change back to simvastatin continue working on diet & exercise Assessment & Plan (05/13/2024 1:31 PM CDT): Uncontrolled Declines increasing statin Discussed working on diet Assessment & Plan (11/05/2023 2:05 PM CDT): Improved, but persistently above goal Continue working on diet/exercise Continue statin Assessment & Plan (04/06/2023 9:17 AM CDT): Uncontrolled Advise increasing statin, but she declines Assessment & Plan (09/29/2022 5:13 PM CONTACT AND SERVICE CLERKS SUPERVISOR): Lipids remain above goal, defers increasing pravastatin at this time Discussed diet (1/2 of plate fruits/veggies, swapping some of protein sources out for beans) Assessment & Plan (03/20/2022 1:09 PM CDT): LDL 133, discussed increasing statin, she desires to work on diet and exercise and recheck Continue 20mg pravastatin Assessment & Plan (09/19/2021 2:25 PM CONTACT AND SERVICE CLERKS SUPERVISOR): Continue 20mg pravastatin Immunizations Immunization Administration Dates Next Due Influenza, Quad, Adjuvantate d, Intramuscular 07/09/2023,05/10/2021 Influenza, Quadrivalent, Hig h Dose, Preservative Free, Intrr 04/22/2022,04/29/2020 Influenza, Quadrivalent, Spl it, Preservative Free, Intramuscular 06/04/2018 Influenza, Trivalent, High D ose, Split, Preservative Free, Intramuscular 05/13/2024 Influenza, Trivalent, Preser vative Free, Intramuscular 08/04/2016 Influenza, Unspecified 05/10/2021 Pfizer SARS-CoV-2 Monovalent Vaccination (12+ Yrs) PURPLE 06/03/2021,10/20/2020,09/22/2020 Pneumococcal Conjugate PCV 13 06/22/2020 Pneumococcal Polysaccharide PPV23 03/20/2022 Surgical History Surgery Date Site/Laterality Comments CHOLECYSTECTOMY 07/30/2001 - 07/29/2002 HYSTERECTOMY 11/27/2016 BLADDER SURGERY 11/27/2016 & 03/23/2017 HEEL SPUR SURGERY 05/13/2021 Right FRACTURE SURGERY 04/2021 Medical History Medical History Date Comments Arthritis 2020 Hypertension 2018 Hyperlipidemia Family History Medical History Relation Name Comments Cancer Father Paul Sam Alzheimer's disease Mother Alia Sam Relation Name Status Comments Father Paul Sam Mother Alia Sam Social History Tobacco Use Types Packs/Day Years Used Date Smoking Tobacco: Never Cigarettes Smokeless Tobacco: Never Tobacco Cessation:Counseling Given: Not Answered AUDIT-C Answer Date Recorded Q1: How often do you have a drink containing alcohol? 4 or more times a week 05/13/2024 Average Number of Drinks Not on file 024 Frequency of Binge Drinking Not on file 04/29 PHQ-2 Answer Date Recorded PHQ-2 Total Score (If total score is 3 or more points, staff should administer the PHQ-9) 0 05/13/2024 Comments Unknown Sex and Gender Information Value Date Recorded Sex Assigned at Not on file Legal Sex Female 9:42 AM CONTACT AND SERVICE CLERKS SUPERVISOR Gender Identity Not on file Sexual Orientation Not on file Obstetrics History Last Filed Vital Signs Vital Sign Reading Time Taken Comments Blood Pressure 124/80 11/11/2024 11:11 AM CDT Pulse 65 11/11/2024 11:11 AM CDT Temperature 36.7 C (98 F) 11/11/2024 11:11 AM CDT Respiratory Rate 18 11/11/2024 11:11 AM CDT Oxygen Saturation 99% 11/11/2024 11:11 AM CDT Inhaled Oxygen Concentration - - Weight 97 kg (213 lb 12.8 oz) 11/11/2024 11:11 A M CDT Height 175.3 cm (5' 9) 11/11/2024 11:11 AM CDT Body Mass Index 31.57 11/11/2024 11:11 AM CDT Plan of Treatment Health Maintenance Due Date Last Done Comments Breast Cancer Screening-Mammogram 1955 Osteoporosis Screening-Bone Density Scan 1955 DTaP/Tdap/Td Vaccine (1 - Tdap) 1965 Zoster Vaccine (1 of 2) 2004 Covid-19 Vaccine (5 - 2024-2 6 season) 2025 05/01/2022, 06/03/2021, 10/20/2020, Additional history exists Influenza Vaccine (#1) 2025 , 07/09/2023, 04/22/2022, Additional history exists Depression Screening 05/13/2025 05/13/2024, 04/06/2023, 03/20/2022, Additional history exists Fall Risk Assessment 05/13/2025 05/13/2024, 04/06/2023, 03/20/2022, Additional history exists Well Visit 65+ 05/13/2025 05/13/2024, 02/2023, 03/20/2022 Colon Cancer Screening-Colonoscopy 11/28/20332023 Pneumococcal vaccine 65+ Completed 03/20/2022, 05/31 Hepatitis B Screening Completed 05/07/2024 Hepatitis C Screening Completed 05/07/2024 Procedures Procedure Name Priority Date/Time Associated Diagnosis Comments HEPATITIS C ANTIBODY Routine 05/07/2024 7:12 AM CDT Need for hepatitis C screening test Encounter for annual wellness visit (AWV) in Medicare patient COLONOSCOPY Routine 11/29/2023 from Last 3 Months or Most Recently Relevant to Health Maintenance Results * Hepatitis C antibody Blood (05/07/2024 7:12 AM CDT) Hep C Ab Nonreactive Nonreactive Comment: Antibodies to HCV not detected. Does NOT exclude the possibility of recent exposure to HCV. Current interpretive data was last revised on 22 Interpretive Data Nonreactive: Antibodies to HCV not detected. Does NOT exclude the possibility of recent exposure to HCV. Equivocal: Equivocal for HCV antibodies. Supplemental molecular testing will be automatically performed to determine infection status in accordance with current CDC screening recommendations. Reactive: Positive for HCV antibodies. This may represent current or past HCV infection. Supplemental molecular testing will be automatically performed to determine current infection status in accordance with current CDC screening recommendations. Interpretive data was last revised on 2019. Blood 05/07/2024 7:12 AM CDT 05/07/2024 12:51 PM CDT Kathy Molina MD LAB MICROBIOLOGY - GENERAL ORDERABLES Final Result [facility] [address] Department [place] [address] * HM COLONOSCOPY (11/29/2023) Jean Marie Holcomb MD HEALTH MAINTENANCE Final Result from Last 3 Months or Most Recently Relevant to Health Maintenance Insurance MEDICARE [facility] MEDICARE [facility] Advance Directives For more information, please contact: [phone] Documents on File Type Date Recorded Patient Spiral Tube Winder Helper Expl anation Power of Hospital Chief Executive Officer 09/29/2022 2:59 PM Care Teams Contract Serviceman Relationship Specialty Start Date End Date Kathy Molina MD PCP - General Family Medicine 09/19/21
== END 2025-04-27 12:49 | disposition home or self-care (01) ==
LOC: ANHFOHIMG 12:50
PROVIDERS: PCP Hospitalist; Visit Provider Obstetrics & Gynecology
DX: Z78.0 Asymptomatic menopausal state (principal)
CPT/HCPCS: 77080